=== PATIENT | female | born 1965 | race African-American/Black ===

== ENCOUNTER 2018-03-22 13:47 | Emergency (ER) | payer OTHER ==
[~2018-03-22] VITALS: Ht 162.6 cm; Wt 108.9 kg
[2018-03-22] MEDS ORDERED: KLOR-CON 1010 MEQ PO (13:49)
[2018-03-22] MEDS ORDERED: TOPAMAX50 MG PO (13:49)
[2018-03-22] MEDS ORDERED: HYDROCODONE-AP1 EAC6 PO (14:51)
[2018-03-22 15:22] VITALS: BP 154/101
== END 2018-03-22 15:23 | disposition home or self-care (01) ==
LOC: ER 13:47
DX: S93.601A Unspecified sprain of right foot, initial encounter (principal); M25.551 Pain in right hip; M25.552 Pain in left hip; M25.511 Pain in right shoulder; R51 Headache; G89.29 Other chronic pain; M54.5 Low back pain; I10 Essential (primary) hypertension; Z88.1 Allergy status to other antibiotic agents; Z88.0 Allergy status to penicillin; Z88.6 Allergy status to analgesic agent; W01.0XXA Fall on same level from slipping, tripping and stumbling without subsequent striking against object, initial encounter; Y92.89 Other specified places as the place of occurrence of the external cause; Y93.89 Activity, other specified; Y99.8 Other external cause status